=== PATIENT | female | born 1970 | race Caucasian/White ===

== ENCOUNTER 2016-03-30 11:55 | Observation (INO) | payer BC, OTHER ==
[2016-03-30] MEDS ORDERED: NS 0.9% 1000 ML* 1,000 ML IV ONE (13:05)
[2016-03-30 13:18] LABS: Hematocrit 44 % (35-47); Hemoglobin 14.1 g/dl (12.0-16.0); Mean Corpuscular HGB Conc 32 g/dl (31-36); Mean Corpuscular Hemoglobin 27 pg (27-31); Mean Corpuscular Volume 84 fL (80-97); Mean Platelet Volume 10 um3 (7.4-10.4); Red Blood Count 5.21 10^6/ul (4.0-5.4); Red Cell Distribution Width 16 % (10.5-15); White Blood Count 11.6 10^3/ul (3.5-10.8)
[2016-03-30 13:31] LABS: ALT 45 U/L (7-52); AST 26 U/L (13-39); Albumin 4.2 g/dL (3.2-5.2); Alkaline Phosphatase 64 U/L (34-104); Amylase 31 U/L (29-103); Anion Gap 8 mmol/L (2-11); BUN/Creatinine Ratio 17.9 (8-20); Blood Urea Nitrogen 14 mg/dL (6-24); CO2 Carbon Dioxide 26 mmol/L (22-32); Chloride 102 mmol/L (101-111); EGFR African American 102.3 (>60); EGFR Non-African American 79.5 (>60); Globulin 2.6 g/dL (2-4); Glucose 116 mg/dL (70-100); Lipase 22 U/L (11.0-82.0); Magnesium 1.9 mg/dL (1.9-2.7); Potassium 3.6 mmol/L (3.5-5.0); Sodium 136 mmol/L (133-145); Total Protein 6.8 g/dL (6.4-8.9)
[2016-03-30 13:33] LABS: Urine Bacteria Absent (Absent); Urine Bilirubin Negative (Negative); Urine Glucose Negative (Negative); Urine Nitrite Negative (Negative)
[2016-03-30] MEDS ORDERED: Iohexol 300* (CONTRAST) 10 ML SDV IV ONE (14:17)
--- NOTE | 2016-03-30 15:53 | RAD ---
CLINICAL HISTORY: Abdominal pain and bright red blood in stool COMPARISON: Most recent CT of the abdomen and pelvis dated July 03, 2013 TECHNIQUE: Contrast enhanced CT examination of the abdomen and pelvis from the lung bases through the initial tuberosities. The patient received 100 mL Omnipaque 300 intravenously prior to imaging.The patient received oral contrast as well prior to imaging. FINDINGS: VISUALIZED LUNG BASES: The visualized lung bases are grossly clear. There is no pleural effusion. ABDOMEN AND PELVIS: The liver is homogenously hypodense. There is no focal lesion or surface irregularity. The spleen, pancreas and adrenal glands are grossly normal in appearance. The gallbladder is normal. The kidneys are normal in appearance without focal mass, calcification or signs of hydronephrosis. The oral contrast has progressed as far as the rectum. The appendix is identified best on the coronal plane images (image 46) measuring 5 mm in diameter. Beginning at the transverse colon the bowel exhibits wall thickening measuring up to 6 mm in thickness. This bowel wall thickening extends from the transverse colon as far as the rectum. There is pericolonic inflammatory change of the mesenteric fat. There is no drainable fluid collection or evidence of macro perforation. There is no gross retroperitoneal or mesenteric lymphadenopathy. The pelvic viscera is normal in appearance. The abdominal aorta and iliac arteries are normal in course and diameter. Degenerative changes include multilevel loss of intervertebral disc height involving the lower thoracic and lumbar spine.There are no sinister bone lesions. IMPRESSION: 1. There is colonic wall thickening with pericolonic inflammatory change extending from the transverse colon as far as the rectum. Inflammatory bowel disease versus an infectious etiology is considered most likely as this distribution is not characteristic of ischemic bowel. Furthermore bowel ischemia would be an unusual finding in a 46-year-old woman with no significant atherosclerotic disease. 2. CT findings are compatible with hepatic ptosis. 3. There are additional chronic and degenerative changes described in body of the report.
[2016-03-30] MEDS ORDERED: Piperac/Tazob 3.375 gm in NS* 3.375 GM/100 ML BAG IVPB ONE (16:19)
--- NOTE | 2016-03-30 16:27 | ED ---
Aditi Lundy Michael, scribed for Douglas Stoner MD on 03/30/16 at 1311 . Abdominal Pain/Female - HPI Summary HPI Summary: 46 y/o female comes to the ED presenting with constant diffuse abd pain that started one day ago. The pt reports that the abd pain is a 5 out of 10 on a pain severity scale. She also c/o diarrhea with blood. Her last episode of diarrhea was all blood per pt. She denies n/v. The PMHx is significant for ischemic colitis, IBS, and kidney stones. The pt states the abd pain is similar to when she was dx with ischemic colitis 2 years ago. Her LNMP was 03/08/16. - History of Current Complaint Chief Complaint: EDGIBleed Stated Complaint: BLOOD IN STOOL Time Seen by Provider: 03/30/16 12:48 Hx Obtained From: Patient, Medical Records Onset/Duration: Sudden Onset, Lasting Days, Still Present Timing: Constant Severity Initially: Moderate Severity Currently: Moderate Pain Intensity: 5 Pain Scale Used: 0-10 Numeric Location: Diffuse Radiates: No Aggravating Factor(s): Nothing Alleviating Factor(s): Nothing Associated Signs and Symptoms: Positive: Diarrhea - with blood. Negative: Nausea, Vomiting Allergies/Adverse Reactions: Allergies Allergy/AdvReac Type Severity Reaction Status Date / Time ADHESIVE TAPE Allergy Rash Uncoded 03/30/16 12:01 PMH/Surg Hx/FS Hx/Imm Hx Endocrine/Hematology History: Denies: Hx Anticoagulant Therapy - ASA daily, Hx Blood Disorders, Hx Diabetes , Hx Thyroid Disease, Hx Anemia Cardiovascular History: Denies: Hx Pacemaker/ICD Respiratory History: Reports: Hx Asthma - PRN ALBUTEROL Denies: Hx Chronic Bronchitis, Hx Pneumonia, Hx Seasonal Allergies - formerly , more than 16 years ago, Hx Sleep Apnea GI History: Reports: Hx Irritable Bowel, Other GI Disorders - ischemic colitis History: Reports: Hx Kidney Stones - HX OF Denies: Hx Acute Renal Failure, Hx Kidney Infection Musculoskeletal History: Reports: Hx Tendonitis - HX OF IN THE PAST, Other Musculoskeletal History - plantar fasciitis, Lt ankle tenosynovitis, meniscal tear knee LEFT Sensory History: Reports: Hx Contacts or Glasses - INSTRUCTS GIVEN Denies: Hx Vision Problem, Hx Hearing Aid, Hx Hearing Problem Opthamlomology History: Reports: Hx Contacts or Glasses - INSTRUCTS GIVEN Denies: Hx Vision Problem Neurological History: Reports: Hx Migraine - MONTHLY- TREATS WITH TYLENOL OR IBUPROFEN Denies: Hx Seizures, Hx Transient Ischemic Attacks (TIA) Psychiatric History: Reports: Hx Anxiety - ON MEDICATION FOR, Hx Panic Disorder - ANXIETY Denies: Hx Depression, Hx Suicide Attempt, Hx of Violent Episodes Against Others, Hx Substance Abuse - Cancer History Hx Chemotherapy: No Hx Radiation Therapy: No - Surgical History Surgery Procedure, Year, and Place: SKIN TAG REMOVAL. LITHOTRIPSY Hx Anesthesia Reactions: No Infectious Disease History: No Infectious Disease History: Denies: Traveled Outside the [place] in Last 30 Days - Family History Known Family History: Positive: Diabetes, Other - CVA, cancer - Social History Occupation: Employed Full-time Lives: With Family Alcohol Use: Rare Substance Use Type: Reports: None Smoking Status (MU): Never Smoked Tobacco Review of Systems Negative: Fever Positive: Abdominal Pain, Diarrhea. Negative: Vomiting, Nausea All Other Systems Reviewed And Are Negative: Yes Physical Exam - Summary Physical Exam Summary: VITAL SIGNS: Reviewed. GENERAL: Patient is an obese female who is lying comfortable in the stretcher. Patient is not in any acute respiratory distress. HEAD AND FACE: Normocephalic and atraumatic. EYES: PERRLA, EOMI x 2, No injected conjunctiva. EARS: Hearing grossly intact. Ear canals and tympanic membranes are WNL. MOUTH: Oropharynx within normal limits. NECK: Supple, trachea is midline, no adenopathy, no JVD. CHEST: Symmetric, no tenderness at palpation LUNGS: Clear to auscultation bilaterally. No wheezing or crackles. CVS: RRR,, S1 and S2 present, no murmurs or gallops appreciated. ABDOMEN: Soft, positive lower abdominal tenderness. No signs of distention. Positive bowel sounds. No rebound no guarding, and no masses palpated. No abdominal bruit or pulsations. Rectal exam with normal sphincter tone, no hemorrhoids and no gross blood and no melena. EXTREMITIES: FROM in all major joints, no edema, no cyanosis or clubbing. NEURO: Alert and oriented x 3. No acute neurological deficits. Speech is normal. SKIN: Dry and warm Triage Information Reviewed: Yes Vital Signs On Initial Exam: Initial Vitals Temp Pulse Resp BP Pulse Ox 97.4 F 96 14 154/90 98 03/30/16 11:57 03/30/16 11:57 03/30/16 11:57 03/30/16 11:57 03/30/16 11:57 Vital Signs Reviewed: Yes Diagnostics - Vital Signs Vital Signs Temp Pulse Resp BP Pulse Ox 03/30/16 11:57 97.4 F 96 14 154/90 98 - Laboratory Result Diagrams: 03/30/16 13:00 03/30/16 13:00 Lab Statement: Any lab studies that have been ordered have been reviewed, and results considered in the medical decision making process. - CT CT ABD/PEL CT Interpretation: Positive (See Comments) - 1. There is colonic wall thickening with pericolonic inflammatory change extending from the transverse colon as far as the rectum. Inflammatory bowel disease versus an infectious etiology is considered most likely as this distribution is not characteristic of ischemic bowel. Furthermore bowel ischemia would be an unusual finding in a 46-year-old woman with no significant atherosclerotic disease. 2. CT findings are compatible with hepatic ptosis. 3. There are additional chronic and degenerative changes described in body of the report. CT Interpretation Completed By: Radiologist Abdominal Pain Fem Course/Dx - Course Course Of Treatment: Consulted Dr. Gallagher (gastro) at 1620-spoke about course of treatment for pt. Dr. Gallagher wants the pt to be admitted to the hospital. Consulted Dr. Mccallum (hospitalist) at 1625-pt is accepted as admission. 46 y/o female comes to the ED presenting with constant diffuse abd pain that started one day ago. The pt reports that the abd pain is a 5 out of 10 on a pain severity scale. She also c/o diarrhea with blood. Her last episode of diarrhea was all blood per pt. She denies n/v. The PMHx is significant for ischemic colitis, IBS, and kidney stones. The pt states the abd pain is similar to when she was dx with ischemic colitis 2 years ago. Her LNMP was 03/08/16. Blood work WNL except for WBCs 11.6, no bands, glucose 116. UA contaminated. Abdominal and pelvic CT impression: IMPRESSION: 1. There is colonic wall thickening with pericolonic inflammatory change extending from the transverse colon as far as the rectum. Inflammatory bowel disease versus an infectious etiology is considered most likely as this distribution is not characteristic of ischemic bowel. Furthermore bowel ischemia would be an unusual finding in a 46-year-old woman with. no significant atherosclerotic disease. 2. CT findings are compatible with hepatic ptosis. 3. There are additional chronic and degenerative changes described in body of the report. In the ED course she was given IV fluids. I discussed the case with Dr. Gallagher and he recommends to start the patient in Zosyn, cleared liquid diet and he will consult for the patient. He also recommended admission to the hospitalist. I discuss my physical exam, findings and test results with Dr. Mccallum from the hospitalist services and she agrees to admit patient to his services. Patient is hemodynamically stable alert and oriented x 3. - Diagnoses Differential Diagnosis: Positive: Bowel Obstruction, Constipation, Diverticulitis, Ectopic , Irritable Bowel Syndrome, Urinary Tract Infection Provider Diagnoses: Colitis Discharge - Discharge Plan Condition: Stable Disposition: ADMITTED TO [facility] The documentation as recorded by the Aditi moya Michael accurately reflects the service I personally performed and the decisions made by me, Douglas Stoner MD.
[2016-03-30] MEDS ORDERED: Ondansetron ODT TAB* 4 MG PO PRN (17:02)
--- NOTE | 2016-03-30 17:17 | PN ---
Hospitalist Progress Note HOSPITALIST ADDENDUM Case reviewed and d/w Sravan FLORES. Mrs. Ellis is a 46yo F with PMH of possible ischemic colitis in 2009 and 2013 , who presents to ED with c/o abdominal pain and bloody stools. Labs and CT reviewed, suggestive of colitis. Agree with current management.
--- NOTE | 2016-03-30 22:41 | HP ---
HISTORY AND PHYSICAL: DATE OF ADMISSION: 03/30/16 PRIMARY CARE PROVIDER: Dr. Ciera Martino. ADMITTING PROVIDER: MARK Montaño SUPERVISING PHYSICIAN: Dr. Ryanne Toledo.* (DICTATED BY MARK MONTAÑO) CONSULTING SUMO WRESTLER: Dr. Gallagher. CHIEF COMPLAINT: Abdominal pain and bloody stool. HISTORY OF PRESENT ILLNESS: This is a 46-year-old female with reported history of ischemic colitis on 2 prior occasions as well as kidney stones, GERD, and anxiety who presented to the emergency department with complaints of crampy abdominal pain and bloody stool. The patient states that this symptoms began last evening with some crampy abdominal pain. She had couple of episodes of loose stools last night and noted small amount of blood. Her symptoms persisted throughout the day today and she presented to the emergency department for further evaluation. She has been afebrile and denies any associated nausea or vomiting. She denies any sick contacts. She denies any other recent acute illness. No associated chest pain or shortness of breath. No palpitations. No skin rashes or joint pain. The patient's history include in 2009 she was admitted for what was diagnosed as ischemic colitis. She underwent hypercoagulable workup which was negative and a workup for autoimmune disease is also reportedly negative. She was started on an aspirin at that time which she has continued daily since. She has no other vascular disease, history of other blood clots or known family history of clotting disorders. She then had another similar episode of bloody stool in 2013. Colonoscopy was not repeated at that time. The patient was diagnosed with presumed ischemic colitis at that time as well. The patient has a long history of intermittent crampy abdominal pain coupled with intermittent constipation and diarrhea that has been previously diagnosed as irritable bowel syndrome. The patient also notes no family history of inflammatory bowel disease or other autoimmune conditions. PAST MEDICAL HISTORY: 1. History of ischemic colitis on 2 prior occasions with negative coagulopathy workup. 2. Kidney stones. 3. GERD. 4. Anxiety. PAST SURGICAL HISTORY: 1. Lithotripsy. 2. Left knee arthroscopy for meniscectomy. HOME MEDICATIONS: 1. Aspirin 81 mg p.o. daily. 2. Celexa 20 mg p.o. daily. 3. Omeprazole 20 mg p.o. daily. FAMILY HISTORY: The patient denies any family history of clotting or bleeding disorders. Her mother had a TIA at the age of 55, but no other family history of premature coronary disease, unexplained at a young age. No other history of stroke. SOCIAL HISTORY: The patient lives at home with her . She has a college - aged son. Denies any smoking history. No regular alcohol consumption. REVIEW OF SYSTEMS: As noted above in the HPI and otherwise negative. PHYSICAL EXAMINATION GENERAL: This is a very pleasant middle-aged female, in no acute distress lying comfortably on the hospital stretcher accompanied by her . VITAL SIGNS: Temperature 97.4 degrees Fahrenheit, pulse 96 beats per minute, respiratory rate 14 per minute, oxygen saturation 98% on room air, blood pressure 154/90 mmHg. HEENT: Head is normocephalic, atraumatic. Mucous membranes are pink and moist. NECK: Supple and free of lymphadenopathy. No JVD appreciated. RESPIRATORY: Lungs are clear to auscultation without wheezes, crackles or rhonchi. CARDIOVASCULAR : Heart has regular rate and rhythm without murmurs, rubs, or gallops. ABDOMEN: Bowel sounds are present. Abdomen is soft and nontender to palpation. EXTREMITIES: No significant lower extremity edema. SKIN: No concerning rashes or lesions. PSYCH: The patient is alert and appropriately oriented. LABORATORY DATA: CBC shows white blood cell count of 11,600, hemoglobin 14.1 g/ dL, and platelet count 204,000. PTT is normal at 30.3. Comprehensive metabolic panel is largely unremarkable with a sodium of 136 mmol/L, potassium 3.6 mmol/L, BUN of 14, creatinine of 0.78 , estimated GFR of 79.5. Random glucose of 116 mg/dL. Lactic acid is normal at 1.3. Total bilirubin of 1.2 and transaminases within normal limits. CRP is normal at 2.2. Lipase is normal at 22. Urinalysis shows 1+ ketones, 1+ blood and otherwise negative. IMAGING: CT of the abdomen and pelvis shows some colonic wall thickening with pericolonic inflammatory changes extending from the transverse colon to as far as the rectum. No other acute changes appreciated. ASSESSMENT AND PLAN: This is a pleasant middle-aged female with reported prior history of ischemic colitis as well as irritable bowel syndrome, gastroesophageal reflux disease, and anxiety who presents with cramping abdominal pain and bloody stools. The patient is being admitted to observation for further evaluation of her complaints. 1. Abdominal pain and bloody stool - imaging is consistent with colitis. Concern from the emergency department was initially that perhaps this represented a recurrence of her ischemic colitis and the patient states that these symptoms are quite similar to what she has experienced in the past. Distribution of colitis on CT is not consistent with ischemic colitis. Her lactic acid is normal making this much less likely as is her CRP. Her exam is benign. She has no tenderness to palpation again making ischemic colitis quite unlikely. The patient has had negative coagulopathy workup in the past and has no family clotting disorders. She has no other vascular risk factors. The patient's picture also does not fit well within an infectious colitis picture. Stool testing is positive for lactoferrin and blood and negative for C. diff. The patient's description of symptoms sounds potentially consistent with inflammatory bowel. Chip Mucker, Dr. Gallagher, was contacted by the emergency department provider and plans to see the patient tomorrow. We will choose not to initiate any specific intervention. We will hold on instituting antibiotics or anticoagulation. The patient will be evaluated tomorrow for a flexible sigmoidoscopy to give some more information. The patient may also benefit from a full repeat outpatient colonoscopy. We will keep the patient on clear liquid diet and some light maintenance fluids as well as antiemetics and analgesics as needed. 2. Anxiety - continue her Celexa. 3. Gastroesophageal reflux disease - continue omeprazole. 4. Code status - the patient is full code. 5. Healthcare proxy is her . 6. DVT prophylaxis - we will avoid any chemical prophylaxis in the setting of rectal bleeding. We will order SCDs at this time. DISPOSITION: The patient is being admitted to observation status for unspecified colitis with pending Gastroenterology consultation. MARK MONTAÑO CC: Dr. Ciera Martino * [id number]/CPS #: [id number] MTDD
[2016-03-31 06:47] LABS: Hematocrit 38 % (35-47); Hemoglobin 12.2 g/dl (12.0-16.0); Mean Corpuscular HGB Conc 32 g/dl (31-36); Mean Corpuscular Hemoglobin 27 pg (27-31); Mean Corpuscular Volume 84 fL (80-97); Mean Platelet Volume 10 um3 (7.4-10.4); Red Blood Count 4.46 10^6/ul (4.0-5.4); Red Cell Distribution Width 17 % (10.5-15); White Blood Count 9.3 10^3/ul (3.5-10.8)
[2016-03-31 06:56] LABS: BUN/Creatinine Ratio 13.6 (8-20); C Reactive Protein 11.61 mg/L (< 5.00); EGFR Non-African American 96.4 (>60); Potassium 3.3 mmol/L (3.5-5.0)
[2016-03-31] MEDS: NS 0.9% 1000 ML* 1,000 ML IV SCH ×2 (07:04→19:46)
[2016-03-31] MEDS ORDERED: Potassium Chlor TAB* 20 MEQ TAB.ER PO ONE (08:46)
[2016-03-31] MEDS: Citalopram TAB* 20 MG PO SCH (09:13)
[2016-03-31] MEDS: Omeprazole CAP* 20 MG PO SCH (09:13)
[2016-03-31] MEDS: Aspirin Low Dose CHEW TAB* 81 MG PO SCH (09:16)
--- NOTE | 2016-03-31 12:42 | PN ---
Subjective Date of Service: 03/31/16 Interval History: Patient seen and examined at bedside. Ms. Ellis is reclined in bed. She denies fever/chills, CP, SOB. She reports abd pain that worsens with oncoming BM as well as cramping. Currently, her abd pain is well controlled. She reports recent bloody diarrhea. She reports a history of previous ischemic colitis. Family History: Unchanged from Admission Social History: Unchanged from Admission Past Medical History: Unchanged from Admission Objective Active Medications: Aspirin (Aspirin Low Dose Tab*) 81 mg PO DAILY [facility] Last Admin: 03/31/16 09:16 Dose: Not Given Citalopram Hydrobromide (Celexa Tab*) 20 mg PO DAILY [facility] Last Admin: 03/31/16 09:13 Dose: 20 mg Sodium Chloride (Ns 0.9% 1000 Ml*) 1,000 mls @ 75 mls/hr IV PER RATE [facility] Last Admin: 03/31/16 07:04 Dose: 75 mls/hr Omeprazole (Prilosec Cap*) 20 mg PO DAILY [facility] Last Admin: 03/31/16 09:13 Dose: 20 mg Ondansetron HCl (Zofran Odt Tab*) 4 mg PO Q6H PRN PRN Reason: NAUSEA Vital Signs 03/30/16 03/30/16 03/30/16 16:30 17:43 17:55 Temperature 98.5 F Pulse Rate 86 85 Respiratory 18 18 Rate Blood Pressure 142/85 128/73 (mmHg) O2 Sat by Pulse 97 98 Oximetry 03/30/16 03/30/16 03/31/16 19:38 19:51 00:16 Temperature 98.7 F 98.6 F Pulse Rate 74 67 Respiratory 18 18 16 Rate Blood Pressure 135/78 139/71 (mmHg) O2 Sat by Pulse 97 97 Oximetry 03/31/16 03/31/16 03/31/16 03:48 07:31 07:57 Temperature 97.6 F 98.2 F Pulse Rate 71 73 Respiratory 16 17 18 Rate Blood Pressure 127/64 125/73 (mmHg) O2 Sat by Pulse 97 97 Oximetry 03/31/16 11:17 Temperature 98.0 F Pulse Rate 67 Respiratory 17 Rate Blood Pressure 122/73 (mmHg) O2 Sat by Pulse 96 Oximetry Oxygen Devices in Use Now: None Appearance: Female patient, reclined in bed, in NAD Eyes: PERRLA Ears/Nose/Mouth/Throat: Clear Oropharnyx, Mucous Membranes Moist Neck: NL Appearance and Movements; NL JVP Respiratory: Symmetrical Chest Expansion and Respiratory Effort, Clear to Auscultation Cardiovascular: NL Sounds; No Murmurs; No JVD, RRR Abdominal: NL Sounds; No Tenderness; No Distention Extremities: No Edema Skin: No Rash or Ulcers Neurological: Alert and Oriented x 3 Lines/Tubes/Other Access: Clean, Dry and Intact PICC Line Nutrition: Taking PO's Result Diagrams: 03/31/16 06:30 03/31/16 06:30 Assess/Plan/Problems-Billing Assessment: Ms. Ellis is a 46 yo female with a PMH of ischemic colitis, kidney stones, GERD, and anxiety who presented to the ED on 03/30/16 with c/o abdominal pain and bloody stool. - Patient Problems (1) Colitis, acute Code(s): K52.9 - NONINFECTIVE GASTROENTERITIS AND COLITIS, UNSPECIFIED Comment : CT shows colonic wall thickening with pericolonic inflammatory changes extending from the transverse colon to the rectum. Lactic acid and CRP not elevated, making concern for ischemic colitis less likely. GI consult pending Continue clear liquids and prn analgesia/anti-emetics. (2) GERD (gastroesophageal reflux disease) Code(s): K21.9 - GASTRO-ESOPHAGEAL REFLUX DISEASE WITHOUT ESOPHAGITIS Comment : Continue omeprazole. (3) Anxiety Code(s): F41.9 - ANXIETY DISORDER, UNSPECIFIED Comment: Continue citalopram. (4) DVT prophylaxis Code(s): LWV1017 - Comment: SCDs (5) Full code status Code(s): Z78.9 - OTHER SPECIFIED HEALTH STATUS Status and Disposition: OBV admit. Anticipate d/c to home when medically stable.
[2016-04-01 06:14] LABS: Hematocrit 36 % (35-47); Hemoglobin 11.8 g/dl (12.0-16.0); Mean Corpuscular HGB Conc 33 g/dl (31-36); Mean Corpuscular Hemoglobin 27 pg (27-31); Mean Corpuscular Volume 84 fL (80-97); Mean Platelet Volume 10 um3 (7.4-10.4); Red Blood Count 4.31 10^6/ul (4.0-5.4); Red Cell Distribution Width 16 % (10.5-15); White Blood Count 7.9 10^3/ul (3.5-10.8)
[2016-04-01 06:28] LABS: BUN/Creatinine Ratio 8.6 (8-20); Calcium 7.7 mg/dL (8.6-10.3); EGFR African American 143.9 (>60); EGFR Non-African American 111.9 (>60); Potassium 3.3 mmol/L (3.5-5.0)
[2016-04-01] MEDS: Omeprazole CAP* 20 MG PO SCH (08:49)
[2016-04-01] MEDS: Citalopram TAB* 20 MG PO SCH (08:50)
[2016-04-01] MEDS: Aspirin Low Dose CHEW TAB* 81 MG PO SCH (08:50)
[2016-04-01] MEDS ORDERED: Potassium Chlor TAB* 20 MEQ TAB.ER PO ONE (09:30)
[2016-04-01] MEDS ORDERED: KCL 20 MEQ/100 ML IVPREMIX* 20 MEQ/100 ML BAG IV ONE (09:30)
[2016-04-01 09:37] LABS: Magnesium 1.9 mg/dL (1.9-2.7)
[2016-04-01] MEDS: NS 0.9% 1000 ML* 1,000 ML IV SCH (10:00)
--- NOTE | 2016-04-01 11:11 | PN ---
Subjective Date of Service: 04/01/16 Interval History: Patient seen and examined at bedside. Pt states that she is feeling better. Denies fever, chills, shortness of breath, chest discomfort, abdominal pain, N/V /D. Pt continues to have a decreased appetite. Family History: Unchanged from Admission Social History: Unchanged from Admission Past Medical History: Unchanged from Admission Objective Active Medications: Aspirin (Aspirin Low Dose Tab*) 81 mg PO DAILY RADHA Citalopram Hydrobromide (Celexa Tab*) 20 mg PO DAILY RADHA Sodium Chloride (Ns 0.9% 1000 Ml*) 1,000 mls @ 75 mls/hr IV PER RATE RADHA Potassium Chloride (Potassium Chloride 20 Meq/100 Ml Ivpremix*) 20 meq in 100 mls @ 50 mls/hr IV ONCE ONE Stop: 04/01/16 11:29 Omeprazole (Prilosec Cap*) 20 mg PO DAILY RADHA Ondansetron HCl (Zofran Odt Tab*) 4 mg PO Q6H PRN Reason: NAUSEA Vital Signs 03/31/16 03/31/16 03/31/16 11:17 15:34 19:20 Temperature 98.0 F 98.5 F 98.1 F Pulse Rate 67 69 67 Respiratory 17 16 18 Rate Blood Pressure 122/73 119/60 131/70 (mmHg) O2 Sat by Pulse 96 97 96 Oximetry 03/31/16 03/31/16 04/01/16 19:48 23:40 03:45 Temperature 98.0 F 97.5 F Pulse Rate 69 72 Respiratory 16 16 16 Rate Blood Pressure 119/66 114/74 (mmHg) O2 Sat by Pulse 95 98 Oximetry 04/01/16 07:22 Temperature Pulse Rate 60 Respiratory 18 Rate Blood Pressure 123/62 (mmHg) O2 Sat by Pulse 97 Oximetry Oxygen Devices in Use Now: None Appearance: NAD, laying in bed. Eyes: No Scleral Icterus, PERRLA Ears/Nose/Mouth/Throat: NL Teeth, Lips, Gums, Mucous Membranes Moist Neck: NL Appearance and Movements; NL JVP, Trachea Midline Respiratory: Symmetrical Chest Expansion and Respiratory Effort, Clear to Auscultation Cardiovascular: NL Sounds; No Murmurs; No JVD, RRR Abdominal: NL Sounds; No Tenderness; No Distention - Bowel sounds present. Extremities: No Edema Skin: No Rash or Ulcers Neurological: Alert and Oriented x 3, NL Muscle Strength and Tone Lines/Tubes/Other Access: Clean, Dry and Intact Peripheral IV - site benign Nutrition: Taking PO's Result Diagrams: 04/01/16 05:38 04/01/16 05:38 Assess/Plan/Problems-Billing Assessment: Ms. Ellis is a 46 yo female with a PMH of ischemic colitis, kidney stones, GERD, and anxiety who presented to the ED on 03/30/16 with c/o abdominal pain and bloody stool. - Patient Problems (1) Colitis, acute Code(s): K52.9 - NONINFECTIVE GASTROENTERITIS AND COLITIS, UNSPECIFIED SNOMED Code(s): 288008212 Comment: - CT shows colonic wall thickening with pericolonic inflammatory changes extending from the transverse colon to the rectum. - Lactic acid and CRP not elevated, making concern for ischemic colitis less likely. - GI consult, appreciate input. May need to have a flex sig. - Continue clear liquids and prn analgesia/anti-emetics. (2) Electrolyte abnormality Code(s): E87.8 - OTH DISORDERS OF ELECTROLYTE AND FLUID BALANCE, NEC SNOMED Code(s): 289579106 Comment: - Hypokalemia. K continues to be low, will give further replacement today. Will recheck labs in the AM (3) GERD (gastroesophageal reflux disease) Code(s): K21.9 - GASTRO-ESOPHAGEAL REFLUX DISEASE WITHOUT ESOPHAGITIS SNOMED Code(s): 267360941 Comment: - Continue omeprazole. (4) Anxiety Code(s): F41.9 - ANXIETY DISORDER, UNSPECIFIED SNOMED Code(s): 85982136 Comment: - Continue citalopram. (5) DVT prophylaxis Code(s): NAP8983 - SNOMED Code(s): 527302890 Comment: - SCDs (6) Full code status Code(s): Z78.9 - OTHER SPECIFIED HEALTH STATUS SNOMED Code(s): 163166119 Status and Disposition: OBV admit. Anticipate d/c to home when medically stable.
[2016-04-01 15:36] VITALS: BP 106/59
--- NOTE | 2016-04-02 12:57 | CONS ---
GASTROENTEROLOGY CONSULTATION REPORT: DATE OF CONSULTATION: 03/31/16 REQUESTING PHYSICIAN: Dr. Toledo. INDICATION: Ischemic colitis. NARRATIVE: Ms. Ellis is a very pleasant 46-year-old female with a history of ischemic colitis, biopsy proven in 2009, and then another suspected episode in 2013 who presents with the acute onset of abdominal pain. It began in her pelvis and then radiated upwards. She developed cramping and then bloody stools. She denied any fevers. No nausea. No vomiting. She denies any new medications. No sick contacts. No new rashes. She currently is feeling about the same as yesterday, maybe slightly better. She continues to have crampy abdominal pain that often results in loose bloody stools. PAST MEDICAL HISTORY: 1. Ischemic colitis. 2. Kidney stones. 3. Anxiety. 4. GERD. SURGICAL HISTORY: Includes: 1. Knee arthroscopy. 2. Lithotripsy. MEDICATIONS AT HOME: Include: 1. Omeprazole. 2. Celexa. 3. Aspirin. FAMILY HISTORY: TIA. SOCIAL HISTORY: No tobacco. Rare alcohol. REVIEW OF SYSTEMS: Twelve systems were reviewed, other than that mentioned in the HPI were unremarkable. PHYSICAL EXAM: Vital Signs: Temperature is 98.0, blood pressure is 122/73, pulse is 67, respiratory rate 17, O2 sat 96%. General: Well-appearing female in no apparent distress. Alert, oriented, pleasant, and fluent. HEENT: Mucous membranes are moist without lesions, ulcers, or exudate. Neck is supple. Trachea is midline. Head is normocephalic, atraumatic. Heart: Regular rate and rhythm. Lungs: Clear to auscultation. Abdomen is slightly obese. Positive bowel sounds, but hypoactive, soft. She is tender throughout. No rebound. No guarding. No masses were felt. Skin is warm and dry. DIAGNOSTIC STUDIES/LAB DATA: Of note, her white count went from 11.6 to 9.3. Hemoglobin is stable at 12.2. Platelets of 176. CRP is 11.61. She did have a CT abdomen and pelvis on the when she came in through the emergency room which revealed colonic wall thickening with pericolonic inflammatory changes extending from the transverse colon as far as the rectum. ASSESSMENT AND PLAN: A pleasant 46-year-old female with a history of biopsy- proven ischemic colitis in the past who presents with a similar situation. Possibilities would include ischemic colitis again, less likely inflammatory bowel disease given the very acute and abrupt onset of her symptoms. Infectious would be possible. At this point, the patient has improved slightly. Given the fact that she has improved with minimal intervention makes me think ischemic colitis more than the others. I think at this point we should continue with pain control and IV fluids. If she does not continue to improve, I would like to perform a flexible sigmoidoscopy tomorrow for further evaluation. She is understanding and agreeable. I will follow-up with her tomorrow. CC: Dr. Aparicio; Dr. Martino* [id number]/[facility] #: [id number] MTDVinay
--- NOTE | 2016-04-02 21:45 | DS ---
DISCHARGE SUMMARY: DATE OF ADMISSION: 03/30/16 DATE OF DISCHARGE: 04/01/16 AGE: 46. ATTENDING PHYSICIAN: Dr. Ashley Miranda * (dictated by Letha Orozco NP). PRIMARY CARE PROVIDER: Dr. Ciera Martino. PRIMARY DIAGNOSIS: Ischemic colitis. SECONDARY DIAGNOSES: 1. Gastroesophageal reflux disease. 2. Anxiety. CONSULTATIONS WHILE IN THE HOSPITAL: Dr. Huntley with Gastroenterology. STUDIES WHILE IN THE HOSPITAL: Abdomen and pelvis CT on 03/30/16. Radiologist's impression: There is colonic wall thickening with pericolonic inflammatory change extending from the transverse colon as far as the rectum. Inflammatory bowel disease versus an infectious etiology is considered most likely as this distribution is not characteristic of ischemic bowel. Furthermore, bowel ischemia would be an unusual finding in a 46-year-old female with no significant atherosclerotic disease. CT findings are compatible with hepatic ptosis. There are additional chronic and degenerative changes described in the body of the report. DISCHARGE MEDICATIONS: Continued home medications: 1. Celexa 20 mg oral daily. 2. Omeprazole 20 mg oral daily. 3. Aspirin 81 mg oral daily. 4. Albuterol HFA inhaler 2 puffs inhalation as needed for shortness of breath or wheeze. 5. Tylenol 1000 mg oral once as needed for pain. 6. Vitamin D 1000 units oral daily. HISTORY OF PRESENT ILLNESS/HOSPITAL COURSE: Ms. Ellis is a 46-year-old female with a past medical history significant for ischemic colitis on 2 prior occasions, kidney stones, GERD, and anxiety, who presented to the emergency room with complaints of crampy abdominal pain and bloody stools. The patient reported symptoms starting the evening before and had to have a few episodes of loose stool. The patient's symptoms persisted and she presented to the emergency room for further evaluation. While in the emergency room, the patient had CT of her abdomen and pelvis showing colonic wall thickening and pericolonic inflammatory changes extending from the transverse to as far as the rectum. There were no other acute changes appreciated. Based on the patient's presentation, Hospitalists were asked to evaluate the patient for admission. While in the hospital, the patient had stool testing that was positive for lactoferrin and blood and negative for C. diff. Dr. Gallagher was consulted and the patient was seen by GI, who felt the patient's symptoms were most likely related to ischemic colitis. During the patient's stay, her diarrhea resolved. She has gone 16 hours without loose stool. The patient initially was maintained on a clear liquid diet and transitioned to a full liquid diet. The patient was able to tolerate a full liquid diet and was felt to be ready for discharge to home. It is to note that the patient had leukocytosis on admission that had resolved. The patient also had hypokalemia. It was felt this was likely secondary to diarrhea. The patient received replacement. The patient did have slightly elevated total bilirubin consistent with previous results. Ms. Ellis was feeling well and ready to be discharged home. Ms. Ellis was stable for discharge to home. Vital signs are as follows: Temperature 98.2, heart rate 65, respiratory rate 16, O2 sat 95% on room air, blood pressure 106/59. DISCHARGE PLAN: Ms. Ellis will be discharged to home. ACTIVITY: As tolerated. DIET: Regular diet. The patient has been maintained on all of her regular medications including aspirin for her ischemic colitis. As far as the patient's hypokalemia, she received potassium replacement today and has been instructed to get a basic metabolic panel drawn on , 04/03/16 prior to her 04/04/16, followup with Dr. Martino at 8:30 a.m. with the lab information. The patient has been instructed to return to the emergency room for chest pain, shortness of breath. This is a summarized report of a complex medical history and hospital stay. For further details, please see the entire medical record. TIME SPENT: Time for this discharge was 50 minutes and 25 minutes were spent face- to-face with the patient discussing discharge plans and instructions. CONDITION ON DISCHARGE: Stable. Reviewed by DOROTEO TRAORE 04/04/16 [id number] CC: Dr. Martino; Dr. Mika Gallagher * [id number]/[facility] #: [id number] NEELA
== END 2016-04-01 17:15 | disposition home or self-care (01) ==
LOC: ED 11:55 → SSU 16:25
PROVIDERS: ADMIT Internal Medicine; ATTEND Internal Medicine
DX: K55.9 Vascular disorder of intestine, unspecified (principal); K21.9 Gastro-esophageal reflux disease without esophagitis; F41.9 Anxiety disorder, unspecified; Z79.82 Long term (current) use of aspirin; J45.909 Unspecified asthma, uncomplicated
CPT/HCPCS: 36415; 74177; 80048; 80053; 81003; 81015; 82150; 82272; 83605; 83630; 83690; 83735; 84145; 84702; 85025; 85730; 86140; 87045; 87046; 87493; 87899; 99284; A9270-GY; G0378; J3480; Q9967

== ENCOUNTER 2017-08-28 10:02 | Emergency (ER) | payer BC, OTHER ==
--- NOTE | 2017-08-28 10:22 | ED ---
Lower Extremity - HPI Summary HPI Summary: 47 year [facility] F [facility] complains of right calf pain x2-3 days. Describes the pain as an ache. Rates the pain 3/10 in severity. Symptoms aggravated by walking. Symptoms alleviated by nothing. Patient reports right calf swelling that is swollen enough that her pants get stuck. Additionally complains of right knee pain x6 days (since 08/22/17). Reports right knee swelling. States that she cannot bend her right knee. Patient denies tick exposure, skin rash, redness. Also denies chest pain, shortness of breath. Recently tested for Lyme disease but results have not come in. Has not had knee xray, denies recent injury. LNMP June 2017. She is not . Her menstrual period is starting to get more irregular. No hx PE. No Fhx PE. Hx ischemic colitis. Home Medications Medication Instructions Recorded Confirmed Type Aspirin 81 mg CHEW TAB* [Aspirin 81 mg PO DAILY 08/28/17 08/28/17 History Low Dose TAB*] Calcium Carbonate [Calcium] 500 mg PO DAILY 08/28/17 08/28/17 History Cholecalciferol TAB* [Vitamin D 1,000 unit PO DAILY 08/28/17 08/28/17 History TAB*] Citalopram TAB* [CeleXA TAB*] 20 mg PO DAILY 08/28/17 08/28/17 History Lactobacillus Combo No.10 1 each PO DAILY 08/28/17 08/28/17 History [Probiotic] Carlton-3 Fatty Acids (Nf) [Fish Oil 1,000 mg PO DAILY 08/28/17 08/28/17 History (NF)] Omeprazole CAP* [Prilosec CAP* 20 20 mg PO DAILY 08/28/17 08/28/17 History MG] - History of Current Complaint Chief Complaint: EDExtremityLower Stated Complaint: RT CALF SWOLLEN/PAINFUL Time Seen by Provider: 08/28/17 10:16 Hx Obtained From: Patient Mechanism Of Injury: Other - NONE Onset of Pain: Days - 2-3 Onset/Duration: Still Present Severity Initially: Moderate Severity Currently: Mild Pain Intensity: 3 Pain Scale Used: 0-10 Numeric Timing: Constant Location: Is Discrete @ - right calf, right knee Character Of Pain: Aching Associated Signs And Symptoms: Positive: Negative - tick exposure, skin rash, redness, chest pain, shortness of breath, Swelling, Other - right calf swelling that is swollen enough that her pants get stuck, right knee pain x6 days (since 08/22/17), right knee swelling, cannot bend her right knee.. Negative: Redness Aggravating Factor(s): Other - Bending Alleviating Factor(s): Nothing Able to Bear Weight: Yes - Allergies/Home Medications Allergies/Adverse Reactions: Allergies Allergy/AdvReac Type Severity Reaction Status Date / Time ADHESIVE TAPE Allergy Rash Uncoded 08/28/17 10:09 Home Medications: Home Medications Aspirin 81 mg CHEW TAB* [Aspirin Low Dose TAB*] 81 mg PO DAILY 08/28/17 [ History Confirmed 08/28/17] Calcium Carbonate [Calcium] 500 mg PO DAILY 08/28/17 [History Confirmed 08/28/17 ] Cholecalciferol TAB* [Vitamin D TAB*] 1,000 unit PO DAILY 08/28/17 [History Confirmed 08/28/17] Citalopram TAB* [CeleXA TAB*] 20 mg PO DAILY 08/28/17 [History Confirmed ] Lactobacillus Combo No.10 [Probiotic] 1 each PO DAILY 08/28/17 [History Confirmed 08/28/17] Carlton-3 Fatty Acids (Nf) [Fish Oil (NF)] 1,000 mg PO DAILY 08/28/17 [History Confirmed 08/28/17] Omeprazole CAP* [Prilosec CAP* 20 MG] 20 mg PO DAILY 08/28/17 [History Confirmed 08/28/17] PMH/Surg Hx/FS Hx/Imm Hx Previously Healthy: No Endocrine/Hematology History: Denies: Hx Anticoagulant Therapy - ASA daily, Hx Blood Disorders, Hx Diabetes , Hx Thyroid Disease, Hx Anemia Cardiovascular History: Denies: Hx Hypertension, Hx Pacemaker/ICD Respiratory History: Reports: Hx Asthma - PRN ALBUTEROL Denies: Hx Chronic Bronchitis, Hx Pneumonia, Hx Seasonal Allergies - formerly , more than 16 years ago, Hx Sleep Apnea GI History: Reports: Hx Gastroesophageal Reflux Disease, Hx Irritable Bowel, Other GI Disorders - ischemic colitis History: Reports: Hx Kidney Stones - HX OF Denies: Hx Acute Renal Failure, Hx Kidney Infection Musculoskeletal History: Reports: Hx Tendonitis - HX OF IN THE PAST, Other Musculoskeletal History - plantar fasciitis, Lt ankle tenosynovitis, meniscal tear knee LEFT Sensory History: Reports: Hx Contacts or Glasses Denies: Hx Vision Problem, Hx Hearing Aid, Hx Hearing Problem Opthamlomology History: Reports: Hx Contacts or Glasses Denies: Hx Vision Problem Neurological History: Reports: Hx Migraine - MONTHLY- TREATS WITH TYLENOL OR IBUPROFEN Denies: Hx Seizures, Hx Transient Ischemic Attacks (TIA) Psychiatric History: Reports: Hx Anxiety - ON MEDICATION FOR, Hx Panic Disorder - ANXIETY Denies: Hx Depression, Hx Suicide Attempt, Hx of Violent Episodes Against Others, Hx Substance Abuse - Cancer History Hx Chemotherapy: No Hx Radiation Therapy: No - Surgical History Surgery Procedure, Year, and Place: SKIN TAG REMOVAL. LITHOTRIPSY. L KNEE SURGERY Hx Anesthesia Reactions: No Infectious Disease History: No Infectious Disease History: Denies: Traveled Outside the [place] in Last 30 Days - Family History Known Family History: Positive: Diabetes, Other - CVA, cancer - Social History Occupation: Employed Full-time Alcohol Use: Rare Hx Substance Use: No Substance Use Type: Reports: None Hx Tobacco Use: No Smoking Status (MU): Never Smoked Tobacco Review of Systems Constitutional: Negative Negative: Chest Pain Negative: Shortness Of Breath Positive: Other - right calf pain, right calf swelling that is swollen enough that her pants get stuck, right knee pain x6 days (since 08/22/17), right knee swelling, cannot bend her right knee Skin: Negative - tick exposure, redness Negative: Rash Neurological: Negative Psychological: Normal All Other Systems Reviewed And Are Negative: Yes Physical Exam - Summary Physical Exam Summary: Appearance: Well-appearing, moderate pain distress, well-nourished Skin: Warm, color reflects adequate perfusion, dry Head: Normal Head/Face inspection, atraumatic Eyes: Conjunctiva clear ENT: Normal inspection Neck: Supple, no nodes, no JVD Respiratory: Lungs clear, normal breath sounds, no respiratory distress Cardio: RRR, No murmur, pulses normal, brisk capillary refill Abdomen: Soft, nontender Musculoskeletal: Tenderness over the anterior aspect of the right knee with minimal swelling. Tenderness and swelling over the posterior right calf with no redness or warmth. Distal pulses intact. FROM. Psychological: Normal Neuro: Alert, muscle tone normal, no focal deficit Triage Information Reviewed: Yes Vital Signs On Initial Exam: Initial Vitals Temp Pulse Resp BP Pulse Ox 97.3 F 60 16 128/83 99 08/28/17 10:04 08/28/17 10:04 08/28/17 10:04 08/28/17 10:04 08/28/17 10:04 Vital Signs Reviewed: Yes Diagnostics - Vital Signs Vital Signs Temp Pulse Resp BP Pulse Ox 08/28/17 10:04 97.3 F 60 16 128/83 99 - Laboratory Lab Statement: Any lab studies that have been ordered have been reviewed, and results considered in the medical decision making process. - Radiology Knee Radiology Interpretation Completed By: Radiologist - NO ACUTE OSSEOUS INJURY. IF SYMPTOMS PERSIST, RECOMMEND REPEAT IMAGING. ED physician has reviewed this report. - Additional Comments Diagnostic Additional Comments: Venous Doppler study, per radiologist, shows NO EVIDENCE OF DEEP VENOUS THROMBOSIS IS IDENTIFIED. ED physician has reviewed this report. Re-Evaluation - Re-Evaluation First Eval Re-Evaluation Time: 11:34 Change: Unchanged Comment: Patient is feeling fine. She denies anything for pain. Second Eval Re-Evaluation Time: 11:56 Change: Unchanged Comment: Discussed discharge plan with patient, who is agreeable. She still declines pain medication. Lower Extremity Course/Dx - Course Course Of Treatment: Medications reviewed this visit. Allergies noted. Right knee x-ray shows NO ACUTE OSSEOUS INJURY. Venous Doppler study shows NO EVIDENCE OF DEEP VENOUS THROMBOSIS. Her Lyme serology was negative. She denied pain medication in ED course. Patient will be discharged home with follow up from Nancy Webster NP, and Dr. House in 7 days. - Diagnoses Differential Diagnosis/HQI/PQRI: Positive: Contusion, DVT, Fracture (Closed), Sprain, Strain Provider Diagnoses: Right leg pain, Knee pain, right Discharge - Sign-Out/Discharge Documenting (check all that apply): Patient Departure - Discharge - Discharge Plan Condition: Stable Disposition: HOME Patient Education Materials: Swollen Knee Joint (ED), Knee Pain (ED) Referrals: Nancy Webster NP [Primary Care Provider] - Shaquille House MD [Medical Doctor] - 7 Days Additional Instructions: Your Lyme serology was negative. We gave you a copy of your xray of your right knee and the ultrasound of your right leg. There were no significant abnormalities and no blood clot (DVT-deep venous thrombosis) RETURN TO THE EMERGENCY DEPARTMENT FOR CHANGING OR WORSENING SYMPTOMS - Billing Disposition and Condition Condition: STABLE Disposition: Home
--- NOTE | 2017-08-28 11:15 | RAD ---
HISTORY: pain, swelling, right knee pain COMPARISONS: None VIEWS: 4, Frontal, lateral, axial, and oblique views of the right knee FINDINGS: BONE DENSITY: Normal. BONES: There is no displaced fracture. JOINTS: There is no arthropathy. There is no suprapatellar joint effusion or lipohemarthrosis. ALIGNMENT: There is no dislocation. SOFT TISSUES: Unremarkable. OTHER FINDINGS: None. IMPRESSION: NO ACUTE OSSEOUS INJURY. IF SYMPTOMS PERSIST, RECOMMEND REPEAT IMAGING.
--- NOTE | 2017-08-28 11:36 | RAD ---
Indication: Leg edema. Duplex Doppler sonography of the deep venous system of the right lower extremity deep venous system was performed. Bilaterally the common femoral veins appear patent and compressible. Right proximal greater saphenous vein, proximal deep femoral vein, femoral vein, popliteal vein, posterior tibial veins and peroneal veins appear patent and compressible.Peroneal veins are somewhat limited in evaluation. IMPRESSION: NO EVIDENCE OF DEEP VENOUS THROMBOSIS IS IDENTIFIED.
[2017-08-28 12:05] VITALS: BP 138/87
== END 2017-08-28 12:04 | disposition home or self-care (01) ==
LOC: ED 10:02
DX: M79.661 Pain in right lower leg (principal); M25.561 Pain in right knee; F41.9 Anxiety disorder, unspecified; Z79.82 Long term (current) use of aspirin; Z79.899 Other long term (current) drug therapy; Z88.8 Allergy status to other drugs, medicaments and biological substances
CPT/HCPCS: 99282

== ENCOUNTER 2017-09-05 09:25 | Emergency (ER) | payer BC, OTHER ==
[2017-09-05 09:33] VITALS: BP 131/77
--- NOTE | 2017-09-05 09:40 | UC ---
Upper Extremity HPI - HPI Summary HPI Summary: Giselle Lundy, scribed for attending Linda Olivares MD. Pt is a 47 y/o F who presents to [facility] c/o R index finger swelling and pain. Sx began on (2 days ago) and has been gradually worsening since onset, preventing her from being able to use it since this morning. No known trauma. Associated pain is moderate, ranked 6/10 on triage. Notes mild tingling/ numbness in the finger. 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 Was recently seen in the ED for RLE swelling where she was tested for Lyme disease which was negative. - History of Current Complaint Chief Complaint: UCUpperExtremity Stated Complaint: R SWOLLEN FINGER Time Seen by Provider: 09/05/17 09:27 Hx Obtained From: Patient Hx Last Menstrual Period: june 20 Onset/Duration: Gradual Onset, Lasting Days - 2 days, Still Present Severity Currently: Moderate Pain Intensity: 6 Pain Scale Used: 0-10 Numeric Location Of Pain: Is Discrete @ - Right index finger Aggravating Factor(s): Nothing Alleviating Factor(s): Nothing Associated Signs And Symptoms: Positive: Swelling - Allergies/Home Medications Allergies/Adverse Reactions: Allergies Allergy/AdvReac Type Severity Reaction Status Date / Time ADHESIVE TAPE Allergy Rash Uncoded 09/05/17 09:34 PMH/Surg Hx/FS Hx/Imm Hx - Additional Past Medical History Additional PMH: NEGATIVE PMHx: HTN, DM, Thyroid disease Respiratory History: Asthma Other History Of: Negative For: Anticoagulant Therapy - ASA daily - Surgical History Surgical History: Yes Surgery Procedure, Year, and Place: SKIN TAG REMOVAL. LITHOTRIPSY. L KNEE SURGERY - Family History Known Family History: Positive: Hypertension, Diabetes, Other - CVA, cancer, HLD - Social History Alcohol Use: Rare Substance Use Type: None Smoking Status (MU): Never Smoked Tobacco - Immunization History Most Recent Influenza Vaccination: 2012 Most Recent Tetanus Shot: a few years ago, less than 10 Most Recent Pneumonia Vaccination: 2010 Review of Systems Constitutional: Negative Skin: Other - Right index finger swelling Eyes: Negative ENT: Negative Respiratory: Negative Cardiovascular: Negative Gastrointestinal: Negative Genitourinary: Negative Motor: Negative Neurovascular: Negative Musculoskeletal: Other: - Right index finger pain Neurological: Negative Psychological: Negative All Other Systems Reviewed And Are Negative: Yes Physical Exam - Summary Physical Exam Summary: Appearance: Well-appearing, Well-nourished Skin: Warm Eyes: Normal ENT: Normal Neck: Supple, nontender Respiratory: Clear to auscultation Cardiovascular: Regular rate, regular rhythm. Normal S1, S2. Musculoskeletal: Moderate tenderness to palpation on the volar surface of the right metacarpal with mild numbness/tingling in the right index finger, 2+ radial pulse Neurological: Normal, A&Ox3 Psychiatric: Normal General: No acute distress Triage Information Reviewed: Yes Vital Signs: Initial Vital Signs Temp 97.5 F 09/05/17 09:30 Pulse 64 09/05/17 09:30 Resp 15 09/05/17 09:30 BP 131/77 09/05/17 09:30 Pulse Ox 100 09/05/17 09:30 Vital Signs Reviewed: Yes Diagnostics - Radiology Finger XR Xray Interpretation: No Acute Changes - #. Fusiform soft tissue swelling of the second finger most prominent at the level of the proximal phalanx and metacarpal phalangeal joint. Negative for fracture. #. Ulnar minus variance and mild osteoarthritis at the distal radioulnar joint. Phsyician reviewed this report. Radiology Interpretation Completed By: Radiologist Hand XR Xray Interpretation: No Acute Changes - #. Fusiform soft tissue swelling of the second finger most prominent at the level of the proximal phalanx and metacarpal phalangeal joint. Negative for fracture. #. Ulnar minus variance and mild osteoarthritis at the distal radioulnar joint. Physician reviewed this report. Radiology Interpretation Completed By: Radiologist Re-Evaluation - Re-Evaluation First Eval Re-Evaluation Time: 10:53 Comment: Discussed XR results. Upper Extremity Course/Dx - Course Course Of Treatment: XR of right index finger neg for fx, NSAIDS PRN - Differential Dx/Diagnosis Provider Diagnoses: 1. Left index finger pain. 2. Mild osteoarthritis Discharge - Sign-Out/Discharge Documenting (check all that apply): Patient Departure - Discharge - Discharge Plan Condition: Stable Disposition: HOME Referrals: Nancy Webster NP [Primary Care Provider] - - Billing Disposition and Condition Condition: STABLE Disposition: Home
--- NOTE | 2017-09-05 10:47 | RAD ---
INDICATION: Swollen and sore RIGHT hand and second finger at the metacarpal phalangeal joint. COMPARISON: No relevant prior exams available on the [facility] PACS for comparison. TECHNIQUE: AP and lateral hand views RIGHT hand. AP, lateral, and oblique views of the RIGHT second finger. REPORT: Fusiform soft tissue swelling of the second finger most prominent at the level of the proximal phalanx and metacarpal phalangeal joint. No conspicuous foreign body or subcutaneous emphysema. Negative for fracture or articular malalignment at the second finger or remainder of the hand. Incidental note of ulnar minus variance. Mild osteoarthritis at the distal radioulnar joint. IMPRESSION: #. Fusiform soft tissue swelling of the second finger most prominent at the level of the proximal phalanx and metacarpal phalangeal joint. Negative for fracture. #. Ulnar minus variance and mild osteoarthritis at the distal radioulnar joint.
--- NOTE | 2017-09-05 10:47 | RAD ---
INDICATION: Swollen and sore RIGHT hand and second finger at the metacarpal phalangeal joint. COMPARISON: No relevant prior exams available on the [facility] [place] for [place]. TECHNIQUE: AP and lateral hand views RIGHT hand. AP, lateral, and oblique views of the RIGHT second finger. REPORT: Fusiform soft tissue swelling of the second finger most prominent at the level of the proximal phalanx and metacarpal phalangeal joint. No conspicuous foreign body or subcutaneous emphysema. Negative for fracture or articular malalignment at the second finger or remainder of the hand. Incidental note of ulnar minus variance. Mild osteoarthritis at the distal radioulnar joint. IMPRESSION: #. Fusiform soft tissue swelling of the second finger most prominent at the level of the proximal phalanx and metacarpal phalangeal joint. Negative for fracture. #. Ulnar minus variance and mild osteoarthritis at the distal radioulnar joint.
== END 2017-09-05 11:14 | disposition home or self-care (01) ==
LOC: UCEAST 09:25
DX: M19.041 Primary osteoarthritis, right hand (principal); M79.644 Pain in right finger(s); M79.89 Other specified soft tissue disorders; Z91.09 Other allergy status, other than to drugs and biological substances
CPT/HCPCS: 73140; 99211; G0463

== ENCOUNTER → 2018-06-18 10:39 | Day surgery (SDC) | payer BC, OTHER ==
[~2018-06-18 10:39] MED LIST: Buffered Lidocaine 1% SYRIN* 1 ML/SYRINGE INTRADERM ONE; Bupivacaine 0.5% W/EPI SDV* 30 ML VIAL ONE; Dexamethasone IV* 4 MG/ML 1 ML (4 MG) IV SLOW PU ONE; Dexamethasone IV* 4 MG/ML 1 ML (4 MG) ONE; DiMENhydriNATE IV* 50 MG/ML VIAL IV PUSH PRN; EPINEPHRINE 1 MG/ML 1 ML VIAL ONE; Famotidine IV* 10 MG/ML 2 ML (20 mg) IV ONE; Famotidine IV* 10 MG/ML 2 ML (20 mg) ONE; HYDROmorphone INJ1* 1 MG/ML SYRINGE IV PRN; Ketorolac INJ* 30 MG/ML 1 ML VIAL ONE; Lactated Ringers 1000 ML Bag* 1,000 ML IV SCH; Lidocaine 2% PF * 5 ML VIAL ONE; Metoprolol Tartrate IV* 1 MG/ML 5 ML VIAL ONE; Midazolam* 1 MG/ML 5 ML VIAL (5 MG) ONE; Naloxone* 0.4 MG/ML 1 ML VIAL IV PRN; Ondansetron INJ* 2 MG/ML VIAL IV PRN; Ondansetron INJ* 2 MG/ML VIAL ONE; Propofol* 10 MG/ML 20 ML BTL ONE; ceFAZolin 2 GM PREMIX in ORs 2 GM/50 ML BAG IVPB ONE; fentaNYL* 50 MCG/ML 2 ML VIAL (100 MCG VIAL) IV PRN; fentaNYL* 50 MCG/ML 2 ML VIAL (100 MCG VIAL) ONE; fentaNYL* 50 MCG/ML 5 ML VIAL (250 MCG VIAL) ONE; oxyCODONE/Acetamin 5/325 MG* TAB PO PRN
[2018-06-18 16:03] VITALS: BP 141/89
--- NOTE | 2018-06-19 11:35 | OP ---
OPERATIVE REPORT: DATE OF OPERATION: 06/18/18 DATE OF : 70 SURGEON: Kwesi Bravo MD LITHOGRAPH OPERATOR: MARK Arrington A physician assistant professor of english was required for the length of the procedure for assistance with patient positi oning, knee manipulation, and closure. ANESTHESIOLOGIST: Dr. Olson. ANESTHESIA: General anesthesia, local anesthesia. PRE-OP DIAGNOSIS: Right knee medial meniscus tear. POST-OP DIAGNOSIS: Right knee medial meniscus tear. OPERATIVE PROCEDURE: Right knee arthroscopic partial medial meniscectomy. ANTIBIOTICS: Ancef 2 g IV. IV FLUIDS: See anesthesia note. TOURNIQUET TIME: 24 minutes at 300 mmHg, right thigh. ARBO-KE-NLKO TIME: 21 minutes. ARTHROSCOPIC FLUID UTILIZED: Not recorded by me. SPECIMEN: None. IMPLANTS: None. ESTIMATED BLOOD LOSS: Minimal. COMPLICATIONS: None. 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 This injury happened with a run. The patient failed a full spectrum of nonoperative management and opted for surgery. The patient had had a prior left knee arthroscopy by me in the past. MRI showed a tear adjacent to the posterior root of the medial meniscus. Difficult to assess whether this tear was a small flap, as read by Dr. Unger or possibly parts sales representative of a posterior root te ar. Given some ambiguity, I spoke with the patient preoperatively about all possible treatments incl uding partial medial meniscectomy, posterior root repair, meniscus repair. The patient was agreeable with whatever was clinically indicated intraoperatively. We discussed different postoperative timel beka for recovery and restrictions. I discussed risks and potential complications. DESCRIPTION OF PROCEDURE: In the preoperative holding, the patient signed a written consent. Operat gray extremity was marked in the preoperative holding. Hair from the skin of the patient's knee was r emoved in the preoperative holding. The patient was taken back to the operating room and placed supi ne on the operating room table. Sedated and intubated. Tourniquet was placed on the right thigh. T he distal thigh was placed in a distal thigh le. Right lower extremity was prepped and draped. Surgical time-out was performed. Esmarch applied and tourniquet elevated to 300 mmHg. Anterolateral knee arthroscopy portal was established using standard technique. Started my diagnostic arthroscopy. No significant wearing at patellofemoral compartment. There was, however, some at demetri st grade 1 to 2 wear of the undersurface of the patella. I moved down to the medial compartment. There was clearly displaced flap of meniscus displaced into the center of the compartment. I established an anteromedial knee arthroscopy portal under direct visualization. I first brought in my arthroscopic probe. The probe allowed me to assess the thickness of the flap a nd its origin. The origin appeared to be near the root. I pushed the fragment back into its place. This helped me regain some additional insight as to its shape. We described this tear as in the whi te-white or white-red zone. It was not near the peripheral margin of the meniscus and so not repaira ble with stitches. A similarly much of the root or almost all of the root was still intact, so this was not a case where a root repair was required. This was a parrot- beak tear in the posterior horn of the medial meniscus adjacent to the posterior root. I then debrided the meniscal fragment with arthroscopic trent and biters. I debrided this meniscus back to a stable rim. I was happy with it. I next assessed the ACL and PCL and the lateral compart ment. No articular cartilage or meniscus damage in the lateral compartment. The ACL and intercondyl ar notch was notable for seeming to possibly not fully insert on the lateral wall of the intercondyla r notch. I did not go about aggressively probing, but it could have been partially injured and scarr ed into the PCL at some point in the distant past. I removed fluid and instruments from the knee. Closed skin incisions with figure- of-eight and twelv e stitches using nylon 3.0 sutures. Local anesthesia injected into subcutaneous tissues, Marcaine 0. 5% with epinephrine. Dressing consisted of Xeroform, 4x4s, ABD, sterile Webril, Manny bandage. A cool ing unit was applied to the right knee. DISPOSITION: The patient was awakened, extubated, and taken to the PACU. She was discharged home wh en medically stable. She is weightbearing as tolerated and is to start physical therapy immediately. Aspirin for DVT prophylaxis for 2 weeks and Percocet for pain control. She will follow up with me in clinic in 10 to 14 days. Wound care instructions provided. [id number]/[facility] #: [id number]
== END | disposition home or self-care (01) ==
LOC: OR 10:39
PROVIDERS: ATTEND Orthopaedic Surgery
DX: S83.241A Other tear of medial meniscus, current injury, right knee, initial encounter (principal); X50.0XXA Overexertion from strenuous movement or load, initial encounter; Y93.02 Activity, running; Y92.9 Unspecified place or not applicable; J45.909 Unspecified asthma, uncomplicated; K21.9 Gastro-esophageal reflux disease without esophagitis; K58.9 Irritable bowel syndrome, unspecified
CPT/HCPCS: 81025; J0690; J1100; J1885; J2250; J2405; J2704; J3010; J3490